=== PATIENT | male | born 1995 | race African-American/Black ===

== ENCOUNTER 2020-03-23 11:40 | Emergency (ER) | payer OTHER ==
[~2020-03-23] VITALS: Ht 177.8 cm; Wt 79.4 kg
[2020-03-23] MEDS ORDERED: MAXITROL EYE DRO5 ML OPHTHALMIC (12:48)
[2020-03-23 12:57] VITALS: BP 120/79
== END 2020-03-23 12:58 | disposition home or self-care (01) ==
LOC: M.ERS 11:40
DX: H10.89 Other conjunctivitis (principal)